=== PATIENT | male | born 1975 | race Two or more races ===

== ENCOUNTER 2023-09-10 06:55 | Emergency (ER) | payer OTHER ==
[~2023-09-10] VITALS: Ht 185.4 cm; Wt 99.8 kg
[2023-09-10] MEDS ORDERED: KETOROLAC TROMETHAMINE 60 MG VIAL IM STA (08:54)
[2023-09-10] MEDS ORDERED: KETOROLAC TROMETHAMINE 60 MG VIAL IM ONE (08:57)
== END 2023-09-10 09:03 | disposition home or self-care (01) ==
LOC: ER 06:57
DX: K40.90 Unilateral inguinal hernia, without obstruction or gangrene, not specified as recurrent (principal); E11.9 Type 2 diabetes mellitus without complications; I10 Essential (primary) hypertension